=== PATIENT | male | born 1955 | race Caucasian/White ===

== ENCOUNTER 2017-11-17 16:09 | Emergency (ER) | END 2017-11-17 20:53 | disposition home or self-care (01) ==

== ENCOUNTER 2019-01-27 06:26 | Day surgery (SDC) | payer OTHER ==
[2019-01-26 15:51] VITALS: BMI 31.6
[~2019-01-27] VITALS: Ht 177.8 cm; Wt 93.8 kg
[2019-01-27] VITALS (15 sets, daily range): BP systolic 95–160; BP diastolic 47–82; PULSE 50–84; RESP 11–27; Ht 177.8 cm; Wt 93.8 kg
--- NOTE | 2019-01-27 06:12 | PREOPHP ---
DATE OF ADMISSION: 01/27/2019 HISTORY OF PRESENT ILLNESS: This 64-year-old patient is admitted for elective cataract surgery of th e left eye. The patient previously had progressive deterioration of vision in both eyes and 3 years ago, underwent cataract surgery in the right eye with good visual recovery. The patient's systemic h istory is positive for insulin-dependent diabetes mellitus, systemic hypertension, sleep abnormality. 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 PHYSICAL EXAMINATION: The patient has a visual acuity of 20/70 in the left eye. Slit lamp examinati on reveals a posterior chamber intraocular lens in the right eye and a nuclear sclerotic and posterio r subcapsular cataract in the left eye. Applanation tonometry 17 mmHg. Examination of the retina in the right eye appears grossly within normal limits. The left eye is obscured by the advanced catara ct. DIAGNOSIS: Nuclear sclerotic and posterior subcapsular cataract, left eye. PLAN: Cataract extraction with lens implant, left eye. The risks and alternatives to the surgery cobos ve been discussed with the patient as well as the hope for improvement of visual acuity leading to gr eater ability of performing activities of daily living. The patient understands this and agrees to [facility] with surgery. Dictated By: CAMERON BARRIENTOS/RENO Conf#: [id number] DID#: [id number]
[~2019-01-27 06:26] MED LIST: ALBU8.5H8 INH; ASPI-817 PO; AZIT250T PO; BENZ-6 PO; CETI10TA19 PO; D-ME473S2 PO; EMTR1TAB11 PO; INSU100C SC; INSU100I12 SQ; INSU300I SQ; LEVEM SC; LISI2.5T59 PO; LISI40TA3 PO; MED4DP PO; MONT10TA24 PO; OMEP20CA16 PO; PANT40TA3 PO; PRED20TA PO; PROM5SYR2 PO; RANI300T3 PO; SITA1TAB7 PO; SULF1TAB31 PO; VIA100 PO; ZOLP10TA5 PO
[2019-01-27] MEDS ORDERED: CYCLOPENTOLATE/PHENYLEPH 2 ML OPH OPER SCH (07:30)
[2019-01-27] MEDS ORDERED: DICLOFENAC 0.1% 2.5 ML OPH OPER SCH (07:30)
[2019-01-27] MEDS ORDERED: TROPICAMIDE 1% 15 ML OPH OPER SCH (07:30)
[2019-01-27] MEDS ORDERED: MOXIFLOXACIN 0.5% 3 ML OPH OPER SCH (07:30)
[2019-01-27] MEDS ORDERED: SOD CHLORIDE 0.9% 1,000 ML IV SCH (07:30)
[2019-01-27] MEDS ORDERED: INSULIN ASPART [NOVOLOG] 3 ML PEN SC STA (08:22)
[2019-01-27] MEDS ORDERED: ACCU-CHEK XX ONE (08:30)
[2019-01-27] MEDS ORDERED: EPINEPHrine 1 MG INJ ONE (09:21)
[2019-01-27] MEDS ORDERED: CEFAZOLIN 1 GM INJ ONE (09:21)
[2019-01-27] MEDS ORDERED: GENTAMICIN 80 MG INJ ONE (09:21)
[2019-01-27] MEDS ORDERED: CARBACHOL 0.01% 1.5 ML OPH INJ ONE (09:21)
[2019-01-27] MEDS ORDERED: LIDOCAINE 4% (MPF) 5 ML INJ ONE (09:21)
[2019-01-27] MEDS ORDERED: TETRACAINE 0.5% 4 ML OPH ONE (09:21)
[2019-01-27] MEDS ORDERED: DEXAMETHASONE 4 MG/ML 1 ML INJ ONE (09:22)
[2019-01-27] MEDS ORDERED: NA HYALURONATE/CHONDROITIN 0.5 ML SYG ONE (09:22)
--- NOTE | 2019-01-27 09:35 | PREAC ---
Date/Time of Note Date/Time of Note DATE: 01/27/19 TIME: 09:33 Anesthesia Eval and Record Evaluation Time Pre-Procedure Interview DATE: 01/27/19 TIME: 09:33 Age 64 Sex male NPO: 8 hrs Preoperative diagnosis LEFT CATARACT Planned procedure LEFT CATARACT EXTRACTION AND IOL PLACEMENT Past Medical History Past Medical History: Includes Cardio: HTN Endo: Diabetes Surgery & Anesthesia Issues No known issue Meds Anticoagulation: No Beta Zander within 24 hr: No Reason Beta Zander not given: Pt. not on B-Zander Reported Medications Zolpidem Tartrate* (Zolpidem Tartrate*) 10 Mg Tablet, 10 MG PO QHS PRN for INSOMNIA, #30 TAB 01/27/19 Ranitidine Hcl* (Zantac*) 300 Mg Tablet, 300 MG PO HS, #30 TAB 01/27/19 Sildenafil Citrate* (Viagra*) 100 Mg Tablet, 100 MG PO DAILY PRN for prior to intercourse, TAB 01/27/19 Emtricitabine-Tenofovir* (Truvada*) 200-300 Mg Tablet, 1 TAB PO DAILY, TAB 01/27/19 Insulin Glargine,Hum.rec.anlog (Matt Curry) 300 Unit/1 Ml Insuln.pen, 300 UNIT SQ, EA 01/27/19 Cetirizine Hcl* (Cetirizine Hcl*) 10 Mg Tablet, 10 MG PO DAILY, #30 TAB 01/27/19 Montelukast Sodium* (Montelukast Sodium*) 10 Mg Tablet, 10 MG PO QHS, #30 TAB 01/27/19 Lisinopril* (Lisinopril*) 40 Mg Tablet, 40 MG PO DAILY, #30 TAB 01/27/19 Insulin Lispro (Humalog Kwikpen U-100) 100 Unit/1 Ml Insuln.pen, 35 UNIT SQ TIDM A, EA 01/27/19 Discontinued Reported Medications Insulin Detemir* (Levemir*) 100 U/Ml Vial, 1 UNIT SC DAILY, VIAL 08/02/15 Insulin Lispro (Humalog) 100 U/Ml Cartridge, 0 SC SLIDING SCALE AC, EA 08/02/15 Aspirin* (Aspirin* EC) 81 Mg Tablet.dr, 81 PO DAILY, TAB 08/02/15 Omeprazole* (Omeprazole*) 20 Mg Capsule.dr, 20 MG PO DAILY, #30 CAP 2/9/16 Sitagliptin Phos-Metformin Hcl (Janumet) 50-1,000 Mg Tablet, 1 TAB PO WITH BREAKFAST DINNE, #60 TAB 08/02/15 Lisinopril* (Lisinopril*) 2.5 Mg Tablet, 2.5 MG PO DAILY, #30 TAB 08/02/15 Discontinued Scripts Benzonatate* (Tessalon Perle*) 100 Mg Capsule, 100 MG PO Q8H PRN for COUGH, #30 CAP Prov:GRIS VENEGAS PA-C 11/17/17 Dextromethorphan Hb-Promethazine Hcl* (Promethazine DM* Syrup) 473 Ml Syrup, 5 ML PO Q6 PRN for COUGH, #100 ML Prov:GRIS VENEGAS PA-C 11/17/17 Albuterol Sulfate* (Proair HFA*) 8.5 Gm Hfa.aer.ad, 2 PUFF INH Q4, #1 INHALER Prov:GRIS VENEGAS PA-C 11/17/17 Azithromycin* (Zithromax*) 250 Mg Tablet, 250 MG PO .ZPACK DIRECTED, #6 TAB TAKE 500 MG (2 TABS) THE FIRST DAY THEN 250 MG (1 TAB) DAYS 2-5 Prov:GRIS VENEGAS PA-C 11/17/17 Methylprednisolone* (Medrol* DOSE PACK) 4 Mg/Dose-Pack Tab.ds.pk, 4 MG PO . DIRECTED, #1 PACKET Prov:GRIS VENEGAS PA-C 11/17/17 Pantoprazole* (Protonix*) 40 Mg Tablet.dr, 40 MG PO DAILY, #20 TAB Prov:ISAIAS MACHUCA MD 11/06/17 Promethazine HCl/Codeine (Prometh-Codein 6.25-10 mg/5 ml) 5 Ml Syrup, 5 ML PO QH S, #4 4 oz Prov:ISAIAS MACHUCA MD 11/06/17 Prednisone* (Prednisone*) 20 Mg Tab, 40 MG PO DAILY for 4 Days, TAB Start November 07, 2017 Prov:ISAIAS MACHUCA MD 11/06/17 Sulfamethoxazole/Trimethoprim* (Bactrim Ds* Tablet) 1 Each Tablet, 1 TAB PO BID for 7 Days, #14 TAB Prov:ISAIAS MACHUCA MD 11/06/17 Current Medications Diclofenac Sodium (Voltaren 0.1%) 1 drop Q5 MIN X 3 OPER Last administered on 01/27/19 08:27; Admin Dose 1 DROP; Start 01/27/19 at 07:30 Tropicamide (Mydriacyl 1%) 1 drop Q5 MIN X3 OPER Last administered on 01/27/19 08:27; Admin Dose 1 DROP; Start 01/27/19 at 07:30 Moxifloxacin HCl (Vigamox) 1 drop Q5 MIN X 3 OPER Last administered on 01/27/19 08:27; Admin Dose 1 DROP; Start 01/27/19 at 07:30 Cyclopentolate/ Phenylephrine (Cyclomydril Oph 2 ml) 1 drop Q5 MIN X 3 OPER Last administered on 01/27/19 08:27; Admin Dose 1 DROP; Start 01/27/19 at 07:30 Sodium Chloride 1,000 ml @ 25 mls/hr Q24H IV Last administered on 01/27/19 08:26; Admin Dose 25 MLS/HR; Start 01/27/19 at 07:30 Meds reviewed: Yes Allergies Coded Allergies: No Known Drug Allergies (Verified Allergy, Unknown, 01/27/19) Allergies Reviewed: Yes Labs/Studies Labs Reviewed: Reviewed by anesthesiologist test: N/A Pre-procedure Exam Last vitals Vital Signs Date Temp Pulse Resp B/P (MAP) Pulse Ox O2 O2 Flow FiO2 Time Delivery Rate 01/27/19 96.3 76 16 144/68 99 Room Air 08:55 (93) Airway: Adequate mouth opening, Adequate thyromental dist Mallampati: Mallampati II Teeth: Normal Lung: Normal Heart: Normal ASA Physical Status ASA physical status: 2 Emergency: None Planned Anesthetic General/MAC: MAC Planned Pain Management Parenteral pain med Pre-operative Attestations Prior to commencing anesthesia and surgery, the patient was re-evaluated, there was verification of: *The patient's identity *The results of appropriate recent lab work and preoperative vital signs *The above evaluation not changing prior to induction *Anesthetic plan, risk benefits, alternative and complications discussed with patient/family; questions answered; patient/family understands, accepts and wishes to proceed. Radhames Gann M.D. Jan 27, 2019 09:35
[2019-01-27] MEDS ORDERED: FENTAnyl 50 MCG/ML VIAL ONE (09:58)
[2019-01-27] MEDS ORDERED: LIDOCAINE 2% (SDV) 5 ML INJ ONE (10:00)
[2019-01-27] MEDS ORDERED: PROPOFOL 200 MG INJ ONE (10:00)
[2019-01-27] MEDS ORDERED: hydrALAzine 20 MG INJ ONE (10:11)
--- NOTE | 2019-01-27 10:18 | SIPON ---
Date/Time of Note Date/Time of Note DATE: 01/27/19 TIME: 10:17 Operative Report Preoperative Diagnosis nuclear sclerotic & posterior subcapsular cataract os Postoperative Diagnosis same Operation/Procedure Performed cataract extraction with lens implant os Surgeon cameron carrera lead assistant manager none Anesthesia: MAC Estimated blood loss: none Transfusion Required none Specimen none Grafts/Implants posterior chamber lens implant Complications none CAMERON CARRERA MD Jan 27, 2019 10:18
--- NOTE | 2019-01-27 10:37 | PAC ---
Date/Time of Note Date/Time of Note DATE: 01/27/19 TIME: 10:36 Post-Anesthesia Notes Post-Anesthesia Note Last documented vital signs Vital Signs Date Temp Pulse Resp B/P (MAP) Pulse Ox O2 O2 Flow FiO2 Time Delivery Rate 01/27/19 96.3 76 16 144/68 99 Room Air 08:55 (93) Activity: WNL Respiratory function: WNL Cardiovascular function: WNL Mental status: Baseline Pain reasonably controlled: Yes Hydration appropriate: Yes Nausea/Vomiting absent: Yes Radhames Gann M.D. Jan 27, 2019 10:37
--- NOTE | 2019-01-27 12:18 | OPR ---
DATE OF OPERATION: 01/27/2019 PREOPERATIVE DIAGNOSIS: Posterior subcapsular cataract, left eye. POSTOPERATIVE DIAGNOSIS: Posterior subcapsular cataract, left eye. OPERATION PERFORMED: Cataract extraction with lens implant, left eye. SURGEON: Cameron Langston MD ANESTHESIA: Dr. Gann. ANESTHESIA: Local standby. OPERATION: Phacoemulsification with posterior chamber intraocular lens implant, left eye. PROCEDURE: The patient was brought to the operating room and placed on the table with an IV in place and the patient attached to an concrete rubber. Oxygen was given via face mask. After some intravenous sedation was administered, local anesthesia was given using Xylocaine 2% with epinephrine, mixed with Marcaine 0.5%. This was given in a lid block and retrobulbar injection. The p atient was then prepped and draped in the usual sterile manner. A wire lid speculum was inserted between the lids of the left eye. A Superblade was used to enter the anterior chamber at the corneoscleral limbus at the 10:30 o'clock position. A separate incision was made using a 3.0-mm keratome which entered the corneoscleral junction at the 12 o'clock position. Thr ough this 3-mm opening, an irrigating cystotome was introduced into the anterior chamber. The chamber was filled with Viscoat and an anterior capsulotomy was performed. Balanced salt solution was then u sed for hydrodissection of the lens. A phacoemulsification handpiece was then brought into the field and introduced into the anterior chamber. The lens nucleus was emulsified using a deep groove and cr acking the nucleus into quadrants. Following this, each quadrant was aspirated and emulsified at the pupillary margin. After this was completed, the irrigation/aspiration handpiece was brought to the field, introduced in to the posterior chamber, and the lens cortical material was removed. When this was completed, additi onal Viscoat was injected into the anterior and posterior chambers. The posterior capsule remained wi th some fibrosis mostly in the periphery. Some of this was vacuumed off the posterior capsule, howev er, in order to avoid the complication of breaking the posterior capsule, the remainder was left in p lace and should some of that spread to the central posterior capsular area, the patient may require a YAG laser capsulotomy postoperatively. The 3-mm opening had its internal lips enlarged, and then the posterior chamber intraocular lens jose uring 20.0 diopters ([employer] Model LI61AO) was then injected into the posterior c hamber using the lens injector system. After the leading haptic was introduced into the capsular bag and the lens optic was present in the center of the eye, the injector was removed and the trailing cobos ptic was grasped with non-toothed forceps and introduced into the capsular fold superiorly. A Sinskey hook was then used to rotate the intraocular lens so that the lips were oriented in the horizontal m eridian. One 10-0 nylon suture was placed across the wound. Prior to tying, the irrigation/aspiration handpiece was reintroduced into the anterior chamber to rem ove the Viscoat. Miochol was instilled to constrict the pupil, and then the 10-0 nylon suture was tie d. The ends were cut short and then the knot was buried. Then, 0.5 mL of dexamethasone and 0.5 mL of Ancef were injected into the sub-Tenon space in the infer ior fornix. Ciloxan drops were then placed on the surface of the eye. The speculum was removed and a patch was applied. The patient then left the operating room in satisfactory condition. Dictated By: CAMERON BARRIENTOS/RENO Conf#: [id number] DID#: [id number]
== END 2019-01-27 11:40 | disposition home or self-care (01) ==
LOC: SDS 06:26
PROVIDERS: ATTEND Ophthalmology
DX: H25.12 Age-related nuclear cataract, left eye (principal); E11.9 Type 2 diabetes mellitus without complications; I10 Essential (primary) hypertension; Z79.4 Long term (current) use of insulin
CPT/HCPCS: 66984; 82962; J0171; J0360; J0690; J1100; J1580; J1815; J3010; V2632; Z7512; Z7610